=== PATIENT | male | born 1950 | race Caucasian/White ===

== ENCOUNTER 2017-03-03 13:50 | Emergency (ER) | payer MEDICARE, BC ==
[~2017-03-03] VITALS: Ht 177.8 cm; Wt 90.7 kg
[2017-03-03 14:10] VITALS: BP 141/92
[2017-03-03] MEDS ORDERED: DIPH,PERTUSS(ACELL),TET VAC/PF 0.5 ML IM-VACC ONE ×2 (14:30→14:52)
== END 2017-03-03 16:00 | disposition home or self-care (01) ==
LOC: ED 15:56
DX: S93.492A Sprain of other ligament of left ankle, initial encounter (principal); W19.XXXA Unspecified fall, initial encounter; Y93.89 Activity, other specified; Y92.89 Other specified places as the place of occurrence of the external cause; Y99.8 Other external cause status
CPT/HCPCS: 90471; 90715